=== PATIENT | male | born 1955 | race Caucasian/White ===

== ENCOUNTER → 2017-02-09 | Outpatient (CLI) | payer BC ==
[~2017-02-09] MED LIST: ASPI81TA28 PO; FEXO1TAB49 PO; MISC1CAP66 PO; MULT-506 PO
--- NOTE | 2017-02-09 09:51 | DIAGNOSTIC IMAGING REPORT ---
CT SCAN OF THE ABDOMEN AND PELVIS WITHOUT IV CONTRAST CLINICAL HISTORY: Right lower quadrant abdominal pain of one month's duration. Diarrhea. COMPARISON STUDY: No priors. TECHNIQUE: CT scan of the abdomen and pelvis is performed from the lung bases to the proximal femora. Images are reviewed in the axial, sagittal, and coronal planes. IV contrast was not administered for this examination as per the referring clinician. Note that the examination was performed in suboptimal fashion without oral and IV contrast. Automated dose control exposure was utilized. CT DOSE: 410.81 mGycm FINDINGS: Lung bases: The heart is normal in size and without pericardial effusion. No airspace consolidation or pleural effusion is identified at the lung bases. There is a 6 mm right middle lobe pulmonary nodule partially visualized on image #1. Paravertebral atelectasis is noted in the right lower lobe, likely related to osteophyte formation. Liver: The unenhanced liver is normal in size, contour, and attenuation. There is no intrahepatic biliary ductal dilatation. Gallbladder: Unremarkable. Spleen: Normal in size and attenuation. Pancreas: Unremarkable. Adrenal glands: Unremarkable. Kidneys: The unenhanced kidneys are normal in size and without hydronephrosis. There are no renal calculi identified. There is no evidence of contour deforming renal mass lesion. A circumaortic left renal vein is incidentally noted. Abdominal vasculature: The abdominal aorta is normal in course and caliber noting mild atherosclerotic calcification. Bowel: The small bowel and colon are normal in course and caliber. There are scattered colonic diverticula without CT evidence of acute diverticulitis. The appendix is well-visualized and normal. Peritoneum: There is no intraperitoneal free air or abdominal ascites. There is a small fat-containing umbilical hernia. Lymphadenopathy: None. Pelvic viscera: The bladder, prostate, and seminal vesicles are normal as imaged. Skeletal structures: No lytic or blastic lesions are seen. Soft tissues: A 2.3 cm sebaceous cyst is noted in the left lateral upper abdominal wall on image #132. IMPRESSION: 1. There are no acute infectious or inflammatory findings in the abdomen or pelvis. 2. There is a 6 mm right middle lobe pulmonary nodule which is only partially imaged. Follow-up with a chest CT is recommended for further assessment of the thorax. Electronically signed by: Tello Daly M.D. 02/09/2017 9:49 AM Dictated Date/Time: 02/09/2017 9:42 AM
== END | disposition home or self-care (01) ==
LOC: C.CTS 09:13
PROVIDERS: ATTEND Family Medicine
DX: R10.31 Right lower quadrant pain (principal); R19.7 Diarrhea, unspecified

== ENCOUNTER → 2017-02-20 | Outpatient (CLI) | payer BC ==
--- NOTE | 2017-02-20 07:53 | DIAGNOSTIC IMAGING REPORT ---
CT SCAN OF THE CHEST WITHOUT IV CONTRAST CLINICAL HISTORY: Pulmonary nodule. COMPARISON STUDY: Abdominal CT dated 02/09/2017. TECHNIQUE: CT scan of the thorax was performed from the thoracic inlet to the upper abdomen. Images are reviewed in the axial, sagittal, and coronal planes. IV contrast was not administered for this examination as per the referring clinician. CT DOSE: 278.11 mGycm FINDINGS: Thyroid: Imaged portions of the thyroid gland are normal in size and attenuation. Thoracic aorta: The thoracic aorta is normal in caliber and demonstrates standard 3-vessel arch anatomy. Heart: The heart is normal in size and without pericardial effusion. The pulmonary trunk is normal in caliber. Lungs and pleural spaces: There is biapical scarring. The trachea and central airways are clear. There is no airspace consolidation or pleural effusion. There are numerous (approximately 10) pulmonary nodules scattered throughout both lungs. The largest nodules measure 8 mm as seen in the right middle lobe on image #219 and 9 mm as seen in the left lower lobe on image #213. Several of these nodules appear slightly hyperdense suggesting faint calcifications. Mediastinum: There is diffuse mediastinal lymphadenopathy. The largest mediastinal nodes are in the prevascular region and measure up to 2.5 x 1.6 cm. Pattie: Not well assessed without IV contrast. Axillae: There is no axillary lymphadenopathy. Lower neck: No supraclavicular lymphadenopathy is seen. Upper abdomen: There is a tiny hiatal hernia. Partially visualized upper abdominal viscera is otherwise within normal limits. Skeletal structures: No lytic or blastic bony lesions are seen. IMPRESSION: 1. There is no airspace consolidation or pleural effusion. 2. There is bulky mediastinal lymphadenopathy. 3. There are numerous (approximately 10) indeterminant but low suspicion pulmonary nodules scattered throughout both lungs measuring up to 9 mm. This constellation of findings is nonspecific, and differential considerations include sarcoidosis, a lymphoproliferative disorder, or less likely reactive lymphadenopathy. Clinical correlation will be required and pulmonology follow-up is recommended. At a minimum, CT follow-up should be performed in 3-6 months time. Electronically signed by: Tello Daly M.D. 02/20/2017 7:51 AM Dictated Date/Time: 02/20/2017 7:42 AM
== END | disposition home or self-care (01) ==
LOC: C.CTS 07:17
PROVIDERS: ATTEND Family Medicine
DX: R91.1 Solitary pulmonary nodule (principal); R59.1 Generalized enlarged lymph nodes; R91.8 Other nonspecific abnormal finding of lung field

== ENCOUNTER → 2017-05-30 | Outpatient (CLI) | payer BC ==
--- NOTE | 2017-05-30 15:03 | DIAGNOSTIC IMAGING REPORT ---
(CHEST) THORAX WITH CLINICAL HISTORY: 62 years-old Male presenting with pulmonary nodules, mediastinal lymphadenopathy. TECHNIQUE: Multidetector CT chest was performed after the administration of intravenous contrast. IV contrast: Optiray 320. COMPARISON: 02/20/2017. CT DOSE: The estimated cumulative dose is 245.68 mGy.cm. 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 On soft tissue windows, normal thyroid and thoracic inlet. Numerous enlarged mediastinal lymph nodes involving every station. Few index nodes are measured below: -Prevascular lymph node measures 20 x 12 mm, previously 19 x 12 mm (series 2 image 27). -Additional prevascular lymph node measures 14 x 8 mm, previously 14 x 7 mm (series 2 image 22). Bilateral hilar adenopathy also noted. Mitral annular calcification. Normal heart size. No pericardial or pleural effusion. Upper abdomen unremarkable. On lung windows, paramediastinal reticulation in the azygos esophageal recess, unchanged. Again demonstrated are multiple bilateral pulmonary nodules. There is dense, a right upper lobe pulmonary nodule measures 4 mm, previously 4 mm (series 4 image 91). The largest pulmonary nodule is in the right middle lobe and measures 7 mm, previously 8 mm (series 4 image 212). Airways patent. On bone windows, degenerative changes of the thoracic spine. Orthopedic hardware noted in the right humeral head. IMPRESSION: 1. No significant change in prominent mediastinal and right hilar lymphadenopathy and bilateral pulmonary nodules. This is most suggestive of sarcoidosis, especially given stability since the prior exam in March 02, 2017. Nonetheless, continued follow-up is recommended to prove stability. Follow-up per Fleischner Society 2017 criteria to be considered of the pulmonary nodules. Please refer to below summary of Fleischner criteria recommendations for follow-up of incidental CT nodules (Wayne Wagner, Guidelines for management of small pulmonary nodules detected on CT scans: A statement from the Fleischner Society, Radiology 237: [phone].) SOLID NODULES Solitary nodule size: <6 mm * Low risk patients: no follow-up needed * high risk patients: optional CT at 12 months Solitary nodule size: 6-8 mm * Low risk patients: follow-up at 6-12 months, then consider further follow-up at 18-24 months * high risk patients: initial follow-up CT at 6-12 months and then at 18-24 months if no change Solitary nodule size: >8 mm * either low or high risk patients - consider follow-up CT at 3 months, and/or CT-PET, and/or biopsy Multiple nodules size: <6 mm * Low risk patients: no routine follow-up * high risk patients: optional CT at 12 months Multiple nodules size: 6-8 mm * Low risk patients: follow-up at 3-6 months, then consider further follow-up at 18-24 months * high risk patients: follow-up at 3-6 months, then at 18-24 months if no change Multiple nodules size: >8 mm * Low risk patients: follow-up at 3-6 months, then consider further follow-up at 18-24 months * high risk patients: follow-up at 3-6 months, then at 18-24 months if no change Note: newly detected indeterminate nodule in persons 35 years of age or older. * Low risk patients: minimal or absent history of smoking and/or other known risk factors * high risk patients: history of smoking or of other known risk factors (e.g. first degree relative with lung cancer, or exposure to asbestos, radon, uranium) * if a nodule up to 8 mm is partly solid or is ground glass further follow-up is required after 24 months to exclude possible slow growing adenocarcinoma (ANNE MARIE) SUBSOLID NODULES Solitary pure ground-glass nodule * nodule size <6 mm - no CT follow-up required * nodule size >=6 mm - follow-up CT at 6-12 months, then every 2 years until 5 years Solitary part-solid nodule * nodule size <6 mm - no CT follow-up required * nodule size >=6 mm - follow-up CT at 3-6 months. If unchanged, and solid component remains <6 mm, then annual follow-up for 5 years Multiple subsolid nodules * nodule size <6 mm - follow-up CT at 3-6 months, consider further follow-up at 2 and 4 years if stable * nodule size >=6 mm - follow-up CT at 3-6 months, subsequent management based on the most suspicious nodule(s) Electronically signed by: Sterling Morrell M.D. 05/30/2017 3:02 PM Dictated Date/Time: 05/30/2017 2:46 PM
== END | disposition home or self-care (01) ==
LOC: C.CTS 13:50
PROVIDERS: ATTEND Internal Medicine Critical Care Medicine
DX: R59.0 Localized enlarged lymph nodes (principal); R91.8 Other nonspecific abnormal finding of lung field

== ENCOUNTER → 2017-07-03 | Outpatient (CLI) | payer BC ==
[2017-07-03 16:57] LABS: BASO % 0.4 %; BASO ABS # 0.02 K/uL (0-0.2); COMPLETE YES; HEMATOCRIT 41.7 % (42-52); IG% 0.4 %; LYMPH % 18.7 %; LYMPH ABS # 0.88 K/uL (1.2-3.4); MEAN CELL VOLUME 91.9 fL (80-100); MEAN CORPUSCULAR HEMOGLOBIN 32.2 pg (25-34); MEAN PLATELET VOLUME 10.1 fL (7.4-10.4); MONO % 8.7 %; NEUT % 67.8 %; PLATELET COUNT 191 K/uL (130-400); RED BLOOD COUNT 4.54 M/uL (4.7-6.1)
[2017-07-03 17:04] LABS: PROTHROMBIN TIME (PATIENT) 10.5 SECONDS (9.0-12.0)
[2017-07-03 17:29] LABS: BLOOD UREA NITROGEN 17 mg/dl (7-18); CALCIUM 8.9 mg/dl (8.5-10.1); CARBON DIOXIDE 28 mmol/L (21-32); CHLORIDE 104 mmol/L (98-107); GLUCOSE 97 mg/dl (70-99); POTASSIUM 4.1 mmol/L (3.5-5.1); SODIUM 139 mmol/L (136-145)
== END | disposition home or self-care (01) ==
LOC: C.LAB 15:17
PROVIDERS: ATTEND Internal Medicine Critical Care Medicine
DX: Z01.812 Encounter for preprocedural laboratory examination (principal)

== ENCOUNTER → 2017-07-13 | Day surgery (SDC) | payer BC ==
[2017-07-03 12:50] VITALS: BMI 22.0
[~2017-07-13] VITALS: Ht 175.3 cm; Wt 70.0 kg
[~2017-07-13] MED LIST changes: +ATROPINE SULFATE 0.1 MG/ML 5ML SYR IV PRN; +DEXAMETHASONE SOD INJ 4 MG/ML VIAL ONE; +EpHEDrine SULFATE 50MG/5ML SYR ONE; +EpHEDrine SULFATE INJ 50 MG/ML AMP IV PRN; +FENTANYL CITRATE INJ 50 MCG/1 ML 2 ML VIAL IV PRN; +FENTANYL CITRATE INJ 50 MCG/1 ML 2 ML VIAL ONE; +FLUMAZENIL 0.1 MG/1 ML 10 ML VIAL IV PRN; +GLYCOPYRROLATE INJ 0.2 MG/ML VIAL ONE; +HYDROmorphone INJ 2 MG/ML SYR/VIAL IV PRN; +LABETALOL HCL IV 5 MG/ML 20ML IV PRN; +LACTATED RINGER'S 1000ML 1,000 ML IV SCH; +LIDOCAINE HCL 2% 2 ML VIAL (20MG/ML) ONE; +MEPERIDINE HCL 25 MG/ML CARP IV PRN; +MIDAZOLAM HCL 1 MG/ML 2ML VIAL ONE; +NALOXONE HCL 0.4 MG/1 ML VIAL/CARP IV PRN; +NEOSTIGMINE METHYLSULFATE 5 MG/5 ML SYR ONE; +ONDANSETRON INJ 2 MG/ML 2 ML VIAL IV PRN; +ONDANSETRON INJ 2 MG/ML 2 ML VIAL ONE; +PHENYLEPHRINE 100MCG/ML 5ML SYR IV PRN; +PROPOFOL IV EMULSION 10 MG/ML 20 ML VIAL IV ONE; +ROCURONIUM BROMIDE 10 MG/ML 5 ML VIAL IV ONE
[2017-07-13 05:37] VITALS: BP 145/93; PULSE 64; TEMP 36.9; O2SAT 98; Ht 175.3 cm; Wt 70.0 kg
--- NOTE | 2017-07-13 06:19 | History and Physical ---
History & Physical Date Jul 13, 2017. Chief Complaint 62-year-old gentleman here for EBUS bronchoscopy for lung nodules and mediastinal lymphadenopathy seen on noncontrast CT: History of Present Illness The patient is a 62 year old male with abnormal CT scan showing diffuse mediastinal lymphadenopathy and pulmonary nodules: 62-year-old gentleman here for EBUS bronchoscopy for lung nodules and mediastinal lymphadenopathy seen on noncontrast CT: The patient initially went to his primary care physician Dr. Lora Mazariegos for evaluation of right lower quadrant pain. As a child he did have an episode of appendicitis which did not require appendectomy. due the patient's previous medical history as well as clinical presentation Dr. Pérez performed CT of the abdomen performed on 02/09/2017. This did note 6 mm nodule in the right middle lobe. With this finding a full CT scan was performed on 02/20/2017 of the chest with multiple pulmonary nodules noted the largest being 9 mm in the left lower lobe. This CT of the chest was not performed with IV contrast. The patient denies: Fever, chills, night sweats, cough, pleurisy or unintentional weight loss. Primary lung cancer risk factors 1. Father of lung cancer 2. Unknown Radon exposure CT scan of the chest without IV contrast date of study 02/20/2017 Biapical scarring Approximately 10 pulmonary nodules scattered throughout both lungs Right middle lobe 8 millimeter nodule image 219 Left lower lobe 9 millimeter nodule image 213 Mediastinum: Diffuse mediastinal lymphadenopathy Largest mediastinal lymph nodes in the perivascular region 2.5 x 1.6 centimeters Small hiatal hernia noted CT scan of the abdomen dated 02/09/2017 (obtain secondary to right lower quadrant abdominal pain) Right middle lobe: 6 mm nodule Paravertebral atelectasis noted in the right lower lobe Active Problems 1. Elevated BP without diagnosis of hypertension 2. Pulmonary nodules 3. Sinusitis 4. History of atrial fibrillation 5. History of bacteremia 6. History of dental abscess Surgical History 1. Colonoscopy (Fiberoptic) 2. Knee Surgery Left 3. Knee Surgery Right 4. Shoulder Surgery Right Family History 1. Family history of lung cancer 2. Family history of malignant neoplasm of prostate Current Meds 1. Karla Allergy 180 MG Oral Tablet; TAKE 1 TABLET DAILY NEEDED 2. Aspirin 325 MG Oral Tablet; TAKE 1 TABLET DAILY 3. Claritin 10 MG Oral Tablet; TAKE 1 TABLET DAILY NEEDED 4. Multivitamin Adult Oral Tablet; TAKE 1 TABLET DAILY Allergies 1. No Known Drug Allergies Additional History Hepatic Disease: No Endocrine Disorder: No Kidney Disease: No Hypertension: No Heart Disease: History of atrial fibrillation Bleeding Tendencies: No Infectious Diseases: No Allergies Coded Allergies: NO KNOWN DRUG ALLERGIES (Verified Allergy, Unknown, NKDA, 07/13/17) POLLEN (Verified Allergy, Unknown, HAYFEVER, 07/13/17) Home Medications Scheduled Aspirin (Aspirin Ec), 81 MG PO DAILY Misc Natural Products (Joint Support), 1 CAP PO Q3D Multivitamin (Multivitamin), 1 TAB PO QAM Scheduled PRN Fexofenadine Hcl (Karla Allergy), 1 TAB PO DAILY PRN for PRN Physical Examination Skin: warm/dry, no rash Eyes: normal inspection, EOMI, sclerae normal ENT: normal ENT inspection, pharynx normal Head: normocephalic, atraumatic Neck: supple, no adenopathy, trachea midline Respiratory/Chest: lungs clear, normal breath sounds, no respiratory distress Cardiovascular: regular rate, rhythm, no edema, no murmur Abdomen / GI: normal bowel sounds, non tender Back: normal inspection Extremities: normal inspection, normal range of motion Neurologic/Psych: no motor/sensory deficits, alert, normal reflexes, oriented x 3 Diagnosis Mediastinal lymphadenopathy with pulmonary nodule ASA Classification: ASA Class II Plan of Treatment EBUS with associated flexible bronchoscopy: Transbronchial transtracheal fine- needle aspiration and bronchial alveolar lavage.
--- NOTE | 2017-07-13 06:45 | History & Physical Bridge Note ---
H&P Re-Evaluation Bridge Note: I have examined the patient, reviewed the History & Physical and in the interval since the performance of the History & Physical I have noted the following changes of clinical significance: No changes noted
--- NOTE | 2017-07-13 08:45 | Bronchoscopy Procedure Note ---
Bronchoscopy Procedure Note Procedure: Flexible-Bronchoscopy, EBUS, BAL (RML), GETA Consent: Obtained through the patient placed into the chart Preprocedural diagnosis: Mediastinal lymphadenopathy with right middle lobe nodule Postprocedural diagnosis: Sarcoidosis with right middle lobe nodule Analgesia: GETA Sedation: GETA Procedure: The Olympus video bronchoscope and EBUS scope were used for this procedure Initially the flexible bronchoscope was used for evaluation of the airways. The ET tube was notably cm above the level of the tj. Trachea: Visualized portion of the trachea was anatomically within normal limits Tj: Anatomically within normal limits Right bronchial tree: Right mainstem bronchus: Anatomically within normal limits Right upper lobe: Anatomically within normal limits Bronchus intermedius: Anatomically within normal limits Right middle lobe: Anatomically within normal limits Right lower lobe: Anatomically within normal limits Findings: No significant findings noted Left bronchial tree: Left mainstem bronchus: Anatomically within normal limits Left upper lobe: Anatomically within normal limits Lingula: Anatomically within normal limits Left lower lobe: Anatomically within normal limits Findings: No significant findings noted EBUS/EV: Tbbx Vimal Stations: 7: # of passes 4 4R: # of passes 3 4L: # of passes 3 BAL: Right middle lobe EBL: 2 cc Complications: None Follow-up: [facility]
--- NOTE | 2017-07-13 08:50 | Discharge Instructions ---
Discharge Instructions Date of Service Jul 13, 2017. Admission Reason for Admission: Pulmonary Nodules Discharge Discharge Diagnosis / Problem: Presumptive Sarcoidosis Discharge Goals Goal(s): Diagnostic testing Activity Recommendations Activity Limitations: resume your previous activity . Instructions / Follow-Up Instructions / Follow-Up Follow-up in the [facility] Current Hospital Diet Patient's current hospital diet: Discharge Diet Recommended Diet: Regular Diet Procedures Procedures Performed: Endobronchial Ultrasound Guided Transbronchial/ Transtracheal Needle Biopsy; Flexible Brochoscopy; Bronchial Lavage Pending Studies Studies pending at discharge: no Medical Emergencies . Who to Call and When: Medical Emergencies: If at any time you feel your situation is an emergency, please call 911 immediately. . Non-Emergent Contact Non-Emergency issues call your: [employer] . . "Provider Documentation" section prepared by Bernard Ann. . VTE Core Measure Inpt VTE Proph given/why not?: Treatment not indicated
--- NOTE | 2017-07-13 09:08 | Anesthesiology Progress Note ---
Anesthesia Post Op Note Date & Time Jul 13, 2017 at 09:08 Vital Signs Pain Intensity: 0 Vital Signs Past 12 Hours Date Time Temp Pulse Resp B/P (MAP) Pulse Ox O2 Delivery O2 Flow Rate FiO2 07/13/17 09:00 62 16 123/78 98 Nasal Cannula 2 07/13/17 08:50 67 16 120/76 96 Oxymask 10 07/13/17 08:40 74 16 125/76 96 Oxymask 10 07/13/17 08:36 36.0 74 16 134/79 100 Oxymask 10 07/13/17 05:37 36.9 64 18 145/93 (110) 98 Room Air Notes Mental Status: alert / awake / arousable, participated in evaluation Pt Amnestic to Procedure: Yes Nausea / Vomiting: adequately controlled Pain: adequately controlled Airway Patency, RR, SpO2: stable & adequate BP & HR: stable & adequate Hydration State: stable & adequate Anesthetic Complications: no major complications apparent
[2017-07-13 09:25] VITALS: BP 105/64; PULSE 74; TEMP 36.5; O2SAT 95
[2017-07-13 09:53] VITALS: BP 133/80; PULSE 73; O2SAT 98
[2017-07-13 10:34] VITALS: BP 126/86; PULSE 69; O2SAT 96
== END | disposition home or self-care (01) ==
LOC: C.ACU 05:16
PROVIDERS: ATTEND Internal Medicine Critical Care Medicine
DX: D86.0 Sarcoidosis of lung (principal); R59.1 Generalized enlarged lymph nodes; Z85.118 Personal history of other malignant neoplasm of bronchus and lung; Z79.82 Long term (current) use of aspirin

== ENCOUNTER 2017-10-29 15:38 | Observation (INO) | payer BC ==
[~2017-10-29] VITALS: Ht 175.3 cm; Wt 69.9 kg
[~2017-10-29 15:38] MED LIST changes: -ATROPINE SULFATE 0.1 MG/ML 5ML SYR IV PRN; -DEXAMETHASONE SOD INJ 4 MG/ML VIAL ONE; -EpHEDrine SULFATE 50MG/5ML SYR ONE; -EpHEDrine SULFATE INJ 50 MG/ML AMP IV PRN; -FENTANYL CITRATE INJ 50 MCG/1 ML 2 ML VIAL IV PRN; -FENTANYL CITRATE INJ 50 MCG/1 ML 2 ML VIAL ONE; -FLUMAZENIL 0.1 MG/1 ML 10 ML VIAL IV PRN; -GLYCOPYRROLATE INJ 0.2 MG/ML VIAL ONE; -HYDROmorphone INJ 2 MG/ML SYR/VIAL IV PRN; -LABETALOL HCL IV 5 MG/ML 20ML IV PRN; -LACTATED RINGER'S 1000ML 1,000 ML IV SCH; -LIDOCAINE HCL 2% 2 ML VIAL (20MG/ML) ONE; -MEPERIDINE HCL 25 MG/ML CARP IV PRN; -MIDAZOLAM HCL 1 MG/ML 2ML VIAL ONE; -NALOXONE HCL 0.4 MG/1 ML VIAL/CARP IV PRN; -NEOSTIGMINE METHYLSULFATE 5 MG/5 ML SYR ONE; -ONDANSETRON INJ 2 MG/ML 2 ML VIAL IV PRN; -ONDANSETRON INJ 2 MG/ML 2 ML VIAL ONE; -PHENYLEPHRINE 100MCG/ML 5ML SYR IV PRN; -PROPOFOL IV EMULSION 10 MG/ML 20 ML VIAL IV ONE; -ROCURONIUM BROMIDE 10 MG/ML 5 ML VIAL IV ONE
[2017-10-29] MEDS ORDERED: SODIUM CHLORIDE 0.9% 1000ML 1,000 ML IV SCH (16:01)
[2017-10-29 16:16] LABS: BASO % 0.6 %; BASO ABS # 0.03 K/uL (0-0.2); COMPLETE YES; HEMATOCRIT 42.4 % (42-52); IG% 0.4 %; LYMPH % 21.6 %; LYMPH ABS # 1.02 K/uL (1.2-3.4); MEAN CORPUSCULAR HEMOGLOBIN 32.5 pg (25-34); MEAN CORPUSCULAR HGB CONC 34.9 g/dl (32-36); MONO % 9.1 %; NEUT % 64.3 %; PLATELET COUNT 202 K/uL (130-400); RED BLOOD COUNT 4.56 M/uL (4.7-6.1); WHITE BLOOD COUNT 4.72 K/uL (4.8-10.8)
--- NOTE | 2017-10-29 16:20 | DIAGNOSTIC IMAGING REPORT ---
CHEST ONE VIEW PORTABLE CLINICAL HISTORY: 62 years-old Male presenting with Stroke. TECHNIQUE: Portable upright AP view of the chest was obtained. COMPARISON: CT chest from 05/30/2017. FINDINGS: Cardiomediastinal silhouette normal. Lungs and pleural spaces clear. Degenerative changes of the thoracic spine. Pin fixation in the right humeral head. Effacement of the left acromiohumeral interval suggesting rotator cuff injury. Upper abdomen normal. IMPRESSION: 1. No acute cardiopulmonary disease. Electronically signed by: Sterling Morrell M.D. 10/29/2017 4:19 PM Dictated Date/Time: 10/29/2017 4:17 PM
[2017-10-29 16:22] LABS: BLOOD UREA NITROGEN 23 mg/dl (7-18); BUN/CREATININE RATIO 22.2 (10-20); CARBON DIOXIDE 26 mmol/L (21-32); CHLORIDE 104 mmol/L (98-107); CREATININE 1.04 mg/dl (0.60-1.40); GLUCOSE 92 mg/dl (70-99); MAGNESIUM 1.9 mg/dl (1.8-2.4); POTASSIUM 3.9 mmol/L (3.5-5.1); SODIUM 136 mmol/L (136-145)
[2017-10-29 16:36] LABS: PROTHROMBIN TIME (PATIENT) 10.7 SECONDS (9.0-12.0)
--- NOTE | 2017-10-29 16:46 | DIAGNOSTIC IMAGING REPORT ---
HEAD WITHOUT CONTRAST (CT) CLINICAL HISTORY: 62 years-old Male presenting with Stroke, memory loss. TECHNIQUE: Multidetector CT imaging of the head was performed without the use of intravenous contrast. IV contrast: None. A dose lowering technique was used consistent with the principles of ALARA (as low as reasonably achievable). COMPARISON: None. CT DOSE (mGy.cm): The estimated cumulative dose is 623.48 mGy.cm. FINDINGS: Skilled Labor topogram: Unremarkable. Ventricles and sulci normal in size. Brain parenchyma normal in appearance with preserved villatoro-white differentiation. No mass effect or midline shift. No hemorrhage or acute territorial infarct. No extra-axial fluid collection. Paranasal sinuses and mastoid air cells clear. Calvarium intact. IMPRESSION: 1. No acute intracranial abnormality. Electronically signed by: Sterling Morrell M.D. 10/29/2017 4:44 PM Dictated Date/Time: 10/29/2017 4:42 PM
--- NOTE | 2017-10-29 16:56 | EMERGENCY ROOM VISIT NOTE ---
History Report prepared by Roque: Arely Dunn Under the Supervision of: Dr. Bernard Muller M.D. First contact with patient: 15:52 Chief Complaint: ALTERED MENTAL STATUS Stated Complaint: FEELS LIKE IN A FOG, CANNOT REMEMBER History of Present Illness The patient is a 62 year old male who presents to the Emergency Room with persistent altered mental status starting around 1345. The patient was driving home after visiting his family who lives 2 hours ago. His states that he suddenly started being unable to remember which exit he was supposed to take. He was unable to remember what happened earlier in the day and could not remember the password to get into his phone. He kept trying to do things that he had already done. He was able to continue driving. He did not become emotional. The patient reports feeling in a fog. He has a slight headache in the front. He cannot remember when the headache started. He is able to walk and his speech is normal. His states that he is still not at baseline. He still cannot remember things. He denies any numbness, weakness, or vision loss. He denies any trauma. He has a history of mitral valve prolapse. He has been healthy otherwise. He denies any history of heart disease, hypertension, or diabetes. Source of History: patient, spouse/significant other Onset: 1345 Position: other (global) Quality: other (altered mental status) Timing: other (persistent) Associated Symptoms: + headache, No weakness, No numbness Note: Pt has memory loss, feeling in a fog. Pt denies change in speech, vision loss. Review of Systems See HPI for pertinent positives & negatives. A total of 10 systems reviewed and were otherwise negative. Past Medical & Surgical Medical Problems: (1) Mitral valve prolapse Family History No pertinent family history stated. Social History Smoking Status: Never Smoker Marital Status: Occupation Status: employed Current/Historical Medications Scheduled Aspirin (Aspirin Ec), 81 MG PO DAILY Multivitamin (Multivitamin), 1 TAB PO QAM Scheduled PRN Fexofenadine Hcl (Karla Allergy), 1 TAB PO DAILY PRN for PRN Misc Natural Products (Joint Support), 1 CAP PO Q3D PRN for Allergies Coded Allergies: NO KNOWN DRUG ALLERGIES (Verified Allergy, Unknown, NKDA, 10/29/17) POLLEN (Verified Allergy, Unknown, HAYFEVER, 10/29/17) Physical Exam Vital Signs Date Time Temp Pulse Resp B/P (MAP) Pulse Ox O2 Delivery O2 Flow Rate FiO2 10/29/17 16:04 97 Room Air 10/29/17 15:41 36.5 92 20 112/58 99 Room Air Physical Exam Constitutional: Vital signs reviewed. Eyes: Pupils are equal round reactive to light. Conjunctiva are noninjected. ENT: Pharynx is clear without erythema or exudate. Mucous membranes are moist. Neck supple without meningeal signs. Respiratory: Clear to auscultation bilaterally. Breath sounds are equal bilaterally. Cardiovascular: Regular rate and rhythm. No rubs or gallops. GI: Soft, nondistended and nontender. Bowel sounds are present. Musculoskeletal: No peripheral edema. No lower extremity tenderness. Integumentary: No cyanosis. Neurological: The patient is awake and alert. Cranial nerves II-XII are intact. Motor is 5 out of 5 all extremities. Sensation is intact to light touch all extremities. Normal speech. No pronator drift. No limb ataxia. Normal visual britt by confrontation. Psychiatric: Normal affect. Medical Decision & Procedures ER Provider Diagnostic Interpretation: X-ray results as stated below per interpretation by me and the radiologist. Radiology results as stated below per my review and the radiologist's interpretation: CHEST ONE VIEW PORTABLE CLINICAL HISTORY: 62 years-old Male presenting with Stroke. TECHNIQUE: Portable upright AP view of the chest was obtained. COMPARISON: CT chest from 05/30/2017. FINDINGS: Cardiomediastinal silhouette normal. Lungs and pleural spaces clear. Degenerative changes of the thoracic spine. Pin fixation in the right humeral head. Effacement of the left acromiohumeral interval suggesting rotator cuff injury. Upper abdomen normal. IMPRESSION: 1. No acute cardiopulmonary disease. Electronically signed by: Sterling Morrell M.D. 10/29/2017 4:19 PM Dictated Date/Time: 10/29/2017 4:17 PM HEAD WITHOUT CONTRAST (CT) CLINICAL HISTORY: 62 years-old Male presenting with Stroke, memory loss. TECHNIQUE: Multidetector CT imaging of the head was performed without the use of intravenous contrast. IV contrast: None. A dose lowering technique was used consistent with the principles of ALARA (as low as reasonably achievable). COMPARISON: None. CT DOSE (mGy.cm): The estimated cumulative dose is 623.48 mGy.cm. 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 Ventricles and sulci normal in size. Brain parenchyma normal in appearance with preserved villatoro-white differentiation. No mass effect or midline shift. No hemorrhage or acute territorial infarct. No extra-axial fluid collection. Paranasal sinuses and mastoid air cells clear. Calvarium intact. IMPRESSION: 1. No acute intracranial abnormality. Electronically signed by: Sterling Morrell M.D. 10/29/2017 4:44 PM Dictated Date/Time: 10/29/2017 4:42 PM Laboratory Results 10/29/17 15:53 Red Blood Count 4.56, Mean Corpuscular Volume 93.0, Mean Corpuscular Hemoglobin 32.5, Mean Corpuscular Hemoglobin Concent 34.9, Mean Platelet Volume 10.0, Neutrophils (%) (Auto) 64.3, Lymphocytes (%) (Auto) 21.6, Monocytes (%) (Auto) 9.1, Eosinophils (%) (Auto) 4.0, Basophils (%) (Auto) 0.6, Neutrophils # (Auto) 3.03, Lymphocytes # (Auto) 1.02, Monocytes # (Auto) 0.43, Eosinophils # (Auto) 0.19, Basophils # (Auto) 0.03 10/29/17 15:53 Test 10/29/17 15:53 White Blood Count 4.72 K/uL (4.8-10.8) Red Blood Count 4.56 M/uL (4.7-6.1) Hemoglobin 14.8 g/dL (14.0-18.0) Hematocrit 42.4 % (42-52) Mean Corpuscular Volume 93.0 fL (80-100) Mean Corpuscular Hemoglobin 32.5 pg (25-34) Mean Corpuscular Hemoglobin Concent 34.9 g/dl (32-36) Platelet Count 202 K/uL (130-400) Mean Platelet Volume 10.0 fL (7.4-10.4) Neutrophils (%) (Auto) 64.3 % Lymphocytes (%) (Auto) 21.6 % Monocytes (%) (Auto) 9.1 % Eosinophils (%) (Auto) 4.0 % Basophils (%) (Auto) 0.6 % Neutrophils # (Auto) 3.03 K/uL (1.4-6.5) Lymphocytes # (Auto) 1.02 K/uL (1.2-3.4) Monocytes # (Auto) 0.43 K/uL (0.11-0.59) Eosinophils # (Auto) 0.19 K/uL (0-0.5) Basophils # (Auto) 0.03 K/uL (0-0.2) RDW Standard Deviation 44.6 fL (36.4-46.3) RDW Coefficient of Variation 13.0 % (11.5-14.5) Immature Granulocyte % (Auto) 0.4 % Immature Granulocyte # (Auto) 0.02 K/uL (0.00-0.02) Prothrombin Time 10.7 SECONDS (9.0-12.0) Prothromb Time International Ratio 1.0 (0.9-1.1) Activated Partial Thromboplast Time 26.4 SECONDS (21.0-31.0) Partial Thromboplastin Ratio 1.0 Anion Gap 6.0 mmol/L (3-11) Est Creatinine Clear Calc Drug Dose 75.6 ml/min Estimated GFR () 90.0 Estimated GFR (Non- 77.7 BUN/Creatinine Ratio 22.2 (10-20) Calcium Level 9.0 mg/dl (8.5-10.1) Magnesium Level 1.9 mg/dl (1.8-2.4) Troponin I < 0.015 ng/ml (0-0.045) Laboratory results as reviewed by me. ECG Indication: altered mental status Rate (beats per minute): 61 Rhythm: normal sinus Findings: RBBB, no acute ischemic change ED Course 1553: The patient was evaluated in room A11B. A complete history and physical exam was performed. 1628: I reevaluated the patient. He was able to recognize me, but did not remember my name. I gave him 3 objects to remember. 1648: I reevaluated the patient. He was still unable to recall my name. He did not remember the 3 objects that were given. I discussed the results and treatment plan with him and his . They verbalized agreement of the plan. He will be evaluated for further management. 1650: I spoke with Dr. Wagner, [facility] hospitalist. We discussed the patient and his results. The patient will be further evaluated by him. Medical Decision This is a 62-year-old male who presents with memory loss. Differential diagnosis includes transient global ischemia, intracranial mass, intracranial hemorrhage, CVA, epileptic amnesia, metabolic derangement. I did perform a limited focused review of portions of the patient's old chart on the electronic medical record. The patient has had no recent pertinent visits to this hospital. I did evaluate the patient as noted above. I did obtain history from the patient as well as his . The patient is presenting with sudden loss of memory while driving. He is currently neurologically intact and has a stroke scale of 0. IV access was established. The patient was placed on a continuous applications tester. I did order and personally review the patient's 12-lead EKG and chest x-ray as described above. I did order and review the patient's blood work as noted in the electronic medical record. I did order a CT of the head. I did review the images myself as well as the radiology report as described above. There is no evidence of acute intracranial abnormality. I did reassess the patient several times. He continues to be unable to make the memories. As the patient is persistently symptomatic I did feel he should be hospitalized for further evaluation and MRI of the brain. I did discuss the case with the hospitalist and mental health case manager. I did discuss the test results with the patient and his . Medication Reconcilliation Current Medication List: was personally reviewed by me Blood Pressure Screening Patient's blood pressure: Normal blood pressure Blood pressure disposition: Did not require urgent referral Consults Time Called: 1649 Consulting Physician: Dr. Wagner, [facility] hospitalist Returned Call: 1650 I spoke with him. We discussed the patient and his results. The patient will be further evaluated by him. Impression Primary Impression: Global amnesia Scribe Attestation The scribe's documentation has been prepared under my direct and personally reviewed by me in its entirety. I confirm that the note above accurately reflects all work, treatment, procedures, and medical decision making performed by me. Departure Information Dispostion Being Evaluated By Hospitalist Referrals Lora Mazariegos M.D. (PCP) Patient Instructions My [facility]
[2017-10-29] MEDS ORDERED: PHARMACIST DISCHARGE MED REC CONSULT PRN (17:30)
[2017-10-29] MEDS ORDERED: ACETAMINOPHEN 325 MG TAB PO PRN (17:30)
[2017-10-29] MEDS ORDERED: ONDANSETRON INJ 2 MG/ML 2 ML VIAL IV PRN (17:30)
--- NOTE | 2017-10-29 17:49 | History and Physical ---
History & Physical Date & Time of Service: Oct 29, 2017 at 17:35 Chief Complaint: Feels Like In A Fog, Cannot Remember Primary Care Physician: Lora Mazariegos M.D. History of Present Illness Source: patient, spouse, hospital records 62 yo male with history of mitral valve prolapse and osteoarthritis, presents today with transient memory loss that happened this afternoon when he was driving home from [employer] after visiting with family. The patient was at a [employer] party, he was drinking last night. His said that he was okay the entire way home but he could not remember what exit to get off [address] She felt that this was odd since they travel that road a lot. After being redirected by his , he was able to drive home. However, once home he could not remember the password to log onto his computer. He received a text from their mailman thanking him for the gift of a [employer] ticket and he wanted to tell him that he won $50. The patient could not recall giving him a [employer] card and a gift even though they just did it last week. He started to pace around the house and told his that he felt like he was "in a fog" and then he had a headache. His became concerned that maybe this was something serious so she brought him to the hospital. In the ED his vitals were stable, CT head normal and labs unremarkable. On exam his speech was clear, no focal neurologic deficits but he still had difficulty remembering events from this morning and last night. He cannot recall details of the [employer] party and cannot recall going out for breakfast with his family. His long-term memory is completely intact. He can tell me his past surgical histories, he can tell me all the names of his 11 siblings, he can tell me his work experience and the medical history of his parents. He is oriented to person, place and time. Past Medical/Surgical History Right shoulder arthroscopy Right knee arthroscopy Left knee arthroplasty Mitral valve prolapse Family History Father from lung cancer, smoker Mother in old age from natural causes 11 siblings, one brother from an accident at work Social History Smoking Status: Never Smoker Smokeless Tobacco Use: No Alcohol Use: socially Drug Use: cocaine Marital Status: Occupational Status: employed Allergies Coded Allergies: NO KNOWN DRUG ALLERGIES (Verified Allergy, Unknown, NKDA, 10/29/17) POLLEN (Verified Allergy, Unknown, HAYFEVER, 10/29/17) Home Medications Scheduled Aspirin (Aspirin Ec), 81 MG PO DAILY Multivitamin (Multivitamin), 1 TAB PO QAM Scheduled PRN Fexofenadine Hcl (Karla Allergy), 1 TAB PO DAILY PRN for PRN Misc Natural Products (Joint Support), 1 CAP PO Q3D PRN for Review of Systems Constitutional: No fever, No chills, No sweats, No weight loss, No weakness, No fatigue, No problem reported Eyes: No worsening of vision, No eye pain, No redness, No discharge, No diplopia, No problem reported ENT: No hearing loss, No unusual epistaxis, No nasal symptoms, No sore throat, No tinnitus, No dental problems, No trouble swallowing, No problem reported Respiratory: No cough, No sputum, No wheezing, No shortness of breath, No dyspnea on exertion, No dyspnea at rest, No hemoptysis, No problem reported Cardiovascular: No chest pain, No orthopnea, No PND, No edema, No claudication , No palpitations, No problem reported Abdomen: No pain, No nausea, No vomiting, No diarrhea, No constipation, No GI bleeding, No problem reported Musculoskeletal: No joint pain, No muscle pain, No swelling, No calf pain, No problem reported Genitourinary - Male: No hematuria, No dysuria, No urinary frequency, No urinary urgency Neurologic: + memory loss (short term), No paralysis, No weakness, No numbness/ tingling, No vertigo, No balance problems, No problem reported Psychiatric: No depression symptoms, No anhedonism, No anxiety, No insomnia, No substance abuse, No problem reported Endocrine: No fatigue, No excessive thirst, No excessive urination, No problem reported Hematologic / Lymphatic: No abnormal bleeding/bruising, No clotting problems, No swollen lymph nodes, No night sweats, No problem reported Integumentary: No rash, No itch, No new/changing skin lesions, No color change , No bleeding, No problem reported Allergic / Immunologic: + seasonal allergies, No environmental allergies, No pet sensitivities, No food allergies, No hives, No frequent infections, No poor healing, No prolonged convalescence, No problem reported Physical Exam Vital Signs Date Time Temp Pulse Resp B/P (MAP) Pulse Ox O2 Delivery O2 Flow Rate FiO2 10/29/17 16:59 160/98 10/29/17 16:08 82 21 10/29/17 16:04 97 Room Air 10/29/17 15:41 36.5 92 20 112/58 99 Room Air General Appearance: WD/WN, no apparent distress Head: normocephalic, atraumatic Eyes: normal inspection, EOMI, sclerae normal ENT: normal ENT inspection, hearing grossly normal, pharynx normal Neck: supple, no adenopathy, no JVD, trachea midline Respiratory/Chest: chest non-tender, lungs clear, normal breath sounds, no respiratory distress, no accessory muscle use Cardiovascular: regular rate, rhythm, no edema, no gallop, no JVD, no murmur, normal peripheral pulses Abdomen/GI: normal bowel sounds, non tender, soft, no organomegaly Back: normal inspection, no CVA tenderness, no muscle spasm, normal range of motion Extremities/Musculoskelatal: normal inspection, no calf tenderness, normal capillary refill, no pedal edema, normal range of motion, pelvis stable Neurologic/Psych: windows application developer II-XII nml as tested, no motor/sensory deficits, alert, normal mood/affect, normal reflexes, oriented x 3 Skin: normal color, warm/dry, no rash Lymphatic: no adenopathy Diagnostics Laboratory Results Results Past 24 Hours Test 10/29/17 15:53 10/29/17 17:30 Range/Units White Blood Count 4.72 4.8-10.8 K/uL Red Blood Count 4.56 4.7-6.1 M/uL Hemoglobin 14.8 14.0-18.0 g/dL Hematocrit 42.4 42-52 % Mean Corpuscular Volume 93.0 80-100 fL Mean Corpuscular Hemoglobin 32.5 25-34 pg Mean Corpuscular Hemoglobin Concent 34.9 32-36 g/dl Platelet Count 202 130-400 K/uL Mean Platelet Volume 10.0 7.4-10.4 fL Neutrophils (%) (Auto) 64.3 % Lymphocytes (%) (Auto) 21.6 % Monocytes (%) (Auto) 9.1 % Eosinophils (%) (Auto) 4.0 % Basophils (%) (Auto) 0.6 % Neutrophils # (Auto) 3.03 1.4-6.5 K/uL Lymphocytes # (Auto) 1.02 1.2-3.4 K/uL Monocytes # (Auto) 0.43 0.11-0.59 K/uL Eosinophils # (Auto) 0.19 0-0.5 K/uL Basophils # (Auto) 0.03 0-0.2 K/uL RDW Standard Deviation 44.6 36.4-46.3 fL RDW Coefficient of Variation 13.0 11.5-14.5 % Immature Granulocyte % (Auto) 0.4 % Immature Granulocyte # (Auto) 0.02 0.00-0.02 K/uL Prothrombin Time 10.7 9.0-12.0 SECONDS Prothromb Time International Ratio 1.0 0.9-1.1 Activated Partial Thromboplast Time 26.4 21.0-31.0 SECONDS Partial Thromboplastin Ratio 1.0 Sodium Level 136 136-145 mmol/L Potassium Level 3.9 3.5-5.1 mmol/L Chloride Level 104 98-107 mmol/L Carbon Dioxide Level 26 21-32 mmol/L Anion Gap 6.0 3-11 mmol/L Blood Urea Nitrogen 23 7-18 mg/dl Creatinine 1.04 0.60-1.40 mg/dl Est Creatinine Clear Calc Drug Dose 75.6 ml/min Estimated GFR () 90.0 Estimated GFR (Non- 77.7 BUN/Creatinine Ratio 22.2 10-20 Random Glucose 92 70-99 mg/dl Calcium Level 9.0 8.5-10.1 mg/dl Magnesium Level 1.9 1.8-2.4 mg/dl Troponin I < 0.015 0-0.045 ng/ml Diagnostic Radiology CT head normal CXR normal Impression Assessment and Plan 62 yo male with acute onset of memory loss, short term amnesia, still with some residual memory issues but intermediate frame tender memory intact - Short term memory loss: transient global amnesia vs small stroke observe on tele, check MRI brain to look for ischemic changes consult neurology to evaluate tomorrow continue aspirin check lipid panel and HbA1c hold on statin as this is not clearly a stroke also, hold on echo and carotid imaging until MRI results back DVT prophylaxis: early ambulation Level of Care Telemetry Resuscitation Status FULL RESUSCITATION VTE Prophylaxis VTE Risk Assessment Done? Y/N: Yes Risk Level: Low Given or contraindicated: Treatment not indicated Additional Copies To Lora Mazariegos M.D.
[2017-10-29] MEDS ORDERED: IV FLUIDS COMPLETED PRN (18:15)
[2017-10-29 19:40] VITALS: BP 179/98; PULSE 58; TEMP 37; O2SAT 99
[2017-10-29 20:00] VITALS: BP 179/98; PULSE 58; TEMP 37; O2SAT 99; Ht 175.3 cm; Wt 69.9 kg
--- NOTE | 2017-10-29 20:39 | DIAGNOSTIC IMAGING REPORT ---
BRAIN COMBO CLINICAL HISTORY: 62 years-old Male presenting with Stroke. TECHNIQUE: Multisequence, multiplanar MR imaging of the brain was performed before and after the administration of intravenous contrast. IV contrast: 7 mL of Gadavist. COMPARISON: CT head performed earlier the same day. FINDINGS: Ventricles and sulci normal in size. Brain parenchyma normal in appearance with preserved villatoro-white differentiation. No mass effect or midline shift. No restricted diffusion to suggest acute ischemia. No hemorrhage. No extra-axial fluid collection. T2 skull base flow voids preserved. No abnormal parenchymal enhancement. Bone marrow signal intensity within the calvarium within normal limits. IMPRESSION: 1. No acute intracranial pathology. No abnormal enhancement. Electronically signed by: Sterling Morrell M.D. 10/29/2017 8:38 PM Dictated Date/Time: 10/29/2017 8:33 PM
[2017-10-29 20:56] VITALS: BP 166/93; PULSE 72
[2017-10-29 23:23] VITALS: BP 124/70; PULSE 77; TEMP 37.1; O2SAT 98
[2017-10-30] MEDS ORDERED: INFLUENZA VIRUS QUAD VACCINE 0.5 ML SYR IM. ONE (00:30)
[2017-10-30] MEDS ORDERED: INFLUENZA ADMINISTRATION CHARGE ONE (00:30)
[2017-10-30 05:05] VITALS: BP 123/80; PULSE 59; TEMP 36.6; O2SAT 99
[2017-10-30 06:01] LABS: BASO % 0.3 %; BASO ABS # 0.01 K/uL (0-0.2); COMPLETE YES; EOS % 7.1 %; HEMATOCRIT 40.1 % (42-52); IG% 0.3 %; LYMPH % 21.8 %; MEAN CELL VOLUME 93.7 fL (80-100); MEAN CORPUSCULAR HEMOGLOBIN 32.2 pg (25-34); MEAN CORPUSCULAR HGB CONC 34.4 g/dl (32-36); MONO % 11.2 %; NEUT % 59.3 %; PLATELET COUNT 177 K/uL (130-400); RED BLOOD COUNT 4.28 M/uL (4.7-6.1); WHITE BLOOD COUNT 3.67 K/uL (4.8-10.8)
[2017-10-30 06:26] LABS: BUN/CREATININE RATIO 21.5 (10-20); CALCIUM 8.8 mg/dl (8.5-10.1); CREATININE 1.02 mg/dl (0.60-1.40)
[2017-10-30 06:29] LABS: CHOLESTEROL/HDL RATIO 3.5
[2017-10-30 06:59] LABS: ESTIMATED AVERAGE GLUCOSE 74 mg/dl; HA1C FLAG Normal (Normal)
[2017-10-30 07:23] VITALS: BP 133/81; PULSE 54; TEMP 36.9; O2SAT 100
--- NOTE | 2017-10-30 08:03 | Neurology Consultation ---
Neurology Consultation Date of Consultation: Oct 30, 2017. Attending Physician: Leonid Wagner D.O. Primary Care Physician: Lora Mazariegos M.D. Reason for Consultation: Amnesia History of Present Illness Source: patient, hospital records The patient is a 62-year-old male who presented to the hospital yesterday for further evaluation of an episode of amnesia that began acutely yesterday afternoon after returning home from a car trip. The patient was with his at the time of the episode. He reportedly cannot remember various things he had just done. He also cannot remember the password for his cellphone. He did report experiencing some associated headache and dizziness but no other neurological symptoms such as change in vision, speech, vertigo, weakness, or sensory loss. He did not seem overly distressed during the observed episode. He did not exhibit any obvious seizure activity. The patient has never had a similar episode previously. He does not have a history of migraine, stroke, or epilepsy. He is currently asymptomatic. I reviewed the images as well as the radiologist's interpretation of the recently completed brain MRI. The study was done with and without gadolinium enhancement. No evidence of acute or subacute infarct. No evidence of hemorrhage. No evidence of demyelination or other parenchymal disease. No hydrocephalus. No significant atrophy. Past Medical/Surgical History Medical Problems: (1) Global amnesia Status: Acute Family History Noncontributory Social History Smokeless Tobacco Use: No Alcohol Use: socially Drug Use: cocaine Marital Status: Occupation Status: employed Allergies Coded Allergies: NO KNOWN DRUG ALLERGIES (Verified Allergy, Unknown, NKDA, 10/29/17) POLLEN (Verified Allergy, Unknown, HAYFEVER, 10/29/17) Current Inpatient Medications Current Inpatient Medications Medications (Trade) Dose Ordered Sig/Damian Route Start Time Stop Time Status Last Admin Dose Admin Miscellaneous Information (Pharmacist Discharge Med Rec Consult) 1 ea UD PRN N/A 10/29/17 17:30 11/28/17 17:29 Acetaminophen (Tylenol Tab) 650 mg Q4H PRN PO 10/29/17 17:30 11/28/17 17:29 Ondansetron HCl (Zofran Inj) 4 mg Q6H PRN IV 10/29/17 17:30 11/28/17 17:29 Aspirin (Ecotrin Tab) 81 mg DAILY PO 10/30/17 09:00 11/29/17 08:59 Miscellaneous (Iv Fluids Completed) 1 ea PRN PRN N/A 10/29/17 18:15 10/29/18 18:14 Review of Systems Constitutional: No fever or chills Neurological: As per history of present illness Psychiatric: No depression or anxiety Physical Exam Vital Signs (Past 24 Hrs): Date Time Temp Pulse Resp B/P (MAP) Pulse Ox O2 Delivery O2 Flow Rate FiO2 10/30/17 07:23 36.9 54 18 133/81 (98) 100 Room Air 10/30/17 05:05 36.6 59 20 123/80 (94) 99 Room Air 10/30/17 04:00 Room Air 10/30/17 00:00 Room Air 10/29/17 23:23 37.1 77 18 124/70 (88) 98 Room Air 10/29/17 20:56 72 166/93 (117) 10/29/17 20:00 99 Room Air 10/29/17 20:00 37.0 58 16 179/98 99 Room Air 10/29/17 19:40 37.0 58 16 179/98 (125) 99 Room Air 10/29/17 18:34 65 18 99 10/29/17 18:04 69 19 99 10/29/17 18:01 181/99 10/29/17 17:34 82 19 95 10/29/17 17:04 61 14 98 10/29/17 16:59 160/98 10/29/17 16:08 82 21 10/29/17 16:04 97 Room Air 10/29/17 15:41 36.5 92 20 112/58 99 Room Air The patient is a well-developed, well-nourished, elderly male. He is sitting up comfortably in bed and in no acute distress. He is alert and oriented to person place and time. Recent and remote memory intact. Attention and concentration normal patient exhibits a normal spontaneous speech pattern. He is able to name objects and repeat phrases. He exhibits an age-appropriate fund of knowledge. Visual britt full to confrontation. Visual acuity normal. Pupils equal round reactive to light and accommodation. Eye movements normal. Facial sensation and expression are normal. No facial droop. Hearing intact bilaterally. Palate elevates to midline. Shoulder shrug strength intact bilaterally. Tongue protrudes to midline. Sensation intact in all 4 limbs. Deep tendon reflexes are intact and symmetrical for the arms and legs. There is no dysdiadochokinesia or dysmetria with finger to nose or heel to duncan. Carotid pulses normal bilaterally , no bruits to auscultation. Muscle strength and tone normal for the arms and legs bilaterally. No abnormal movements. No atrophy. Laboratory Results Past 24 Hours: 10/30/17 05:21 Red Blood Count 4.28, Mean Corpuscular Volume 93.7, Mean Corpuscular Hemoglobin 32.2, Mean Corpuscular Hemoglobin Concent 34.4, Mean Platelet Volume 10.0, Neutrophils (%) (Auto) 59.3, Lymphocytes (%) (Auto) 21.8, Monocytes (%) (Auto) 11.2, Eosinophils (%) (Auto) 7.1, Basophils (%) (Auto) 0.3, Neutrophils # (Auto ) 2.18, Lymphocytes # (Auto) 0.80, Monocytes # (Auto) 0.41, Eosinophils # (Auto ) 0.26, Basophils # (Auto) 0.01 10/30/17 05:21 Test 10/29/17 15:53 10/29/17 16:09 10/30/17 05:21 Prothrombin Time 10.7 SECONDS (9.0-12.0) Prothromb Time International Ratio 1.0 (0.9-1.1) Activated Partial Thromboplast Time 26.4 SECONDS (21.0-31.0) Partial Thromboplastin Ratio 1.0 Estimated Average Glucose 74 mg/dl Hemoglobin A1c 4.2 % (4.5-5.6) Magnesium Level 1.9 mg/dl (1.8-2.4) Troponin I < 0.015 ng/ml (0-0.045) Bedside Glucose 91 mg/dl (70-99) White Blood Count 3.67 K/uL (4.8-10.8) Red Blood Count 4.28 M/uL (4.7-6.1) Hemoglobin 13.8 g/dL (14.0-18.0) Hematocrit 40.1 % (42-52) Mean Corpuscular Volume 93.7 fL (80-100) Mean Corpuscular Hemoglobin 32.2 pg (25-34) Mean Corpuscular Hemoglobin Concent 34.4 g/dl (32-36) Platelet Count 177 K/uL (130-400) Mean Platelet Volume 10.0 fL (7.4-10.4) Neutrophils (%) (Auto) 59.3 % Lymphocytes (%) (Auto) 21.8 % Monocytes (%) (Auto) 11.2 % Eosinophils (%) (Auto) 7.1 % Basophils (%) (Auto) 0.3 % Neutrophils # (Auto) 2.18 K/uL (1.4-6.5) Lymphocytes # (Auto) 0.80 K/uL (1.2-3.4) Monocytes # (Auto) 0.41 K/uL (0.11-0.59) Eosinophils # (Auto) 0.26 K/uL (0-0.5) Basophils # (Auto) 0.01 K/uL (0-0.2) RDW Standard Deviation 45.8 fL (36.4-46.3) RDW Coefficient of Variation 13.4 % (11.5-14.5) Immature Granulocyte % (Auto) 0.3 % Immature Granulocyte # (Auto) 0.01 K/uL (0.00-0.02) Anion Gap 3.0 mmol/L (3-11) Est Creatinine Clear Calc Drug Dose 76.1 ml/min Estimated GFR () 92.2 Estimated GFR (Non- 79.5 BUN/Creatinine Ratio 21.5 (10-20) Calcium Level 8.8 mg/dl (8.5-10.1) Triglycerides Level 121 mg/dl (0-150) Cholesterol Level 192 mg/dl (0-200) HDL Cholesterol 55 mg/dl LDL Cholesterol, Calculated 113 mg/dl VLDL Cholesterol, Calculated 24 mg/dl Cholesterol/HDL Ratio 3.5 Impression Transient global amnesia. Resolved. Patient neurologically intact. Brain MRI normal. No history of migraines, epilepsy, or stroke. No clinical evidence suggestive of encephalitis. Plan No further workup necessary. I explained to the patient the benign nature of transient global amnesia. Evaluations are typically negative or unremarkable. There is no specific treatment for this phenomenon. Some individuals may experience a relapse potentially related to stress or travel. No further recommendations at this time. Thank you for the consult.
--- NOTE | 2017-10-30 08:21 | Medical Student: [facility] ---
Consultation Date of Consultation: Oct 30, 2017. History of Present Illness Patient developed transient memory loss yesterday afternoon on his way driving home. He couldn't remember what exit to take to get off the highway. He had some other memory issues yesterday, such as not remembering the password to his phone, and repeating himself. He had a headache at the time of the memory loss. He denies any other associated symptoms with the event. He stated that by the time he arrived to the ED, he can remember what happened yesterday. There is a period of time yesterday for several hours that he does not recall what happened. This has never happened before. The patient has no history of stroke, migraines, or seizures. Past Medical/Surgical History Medical History: Osteoarthritis Mitral valve prolapse Surgical History: Right shoulder arthroscopy Left and right knee arthroscopy Family History Father - lung cancer Social History Smoking Status: Never Smoker History of Alcohol Use: Yes (beer/wine 2 glasses/day) Marital Status: Occupation Status: employed Review of Systems Constitutional: No fever, No chills Eyes: No worsening of vision ENT: No hearing loss Abdomen: No pain, No vomiting Neurologic: No paralysis, No weakness Allergies Coded Allergies: NO KNOWN DRUG ALLERGIES (Verified Allergy, Unknown, NKDA, 10/29/17) POLLEN (Verified Allergy, Unknown, HAYFEVER, 10/29/17) Medications Current Inpatient Medications Medications (Trade) Dose Ordered Sig/Damian Route Start Time Stop Time Status Last Admin Dose Admin Miscellaneous Information (Pharmacist Discharge Med Rec Consult) 1 ea UD PRN N/A 10/29/17 17:30 11/28/17 17:29 Acetaminophen (Tylenol Tab) 650 mg Q4H PRN PO 10/29/17 17:30 11/28/17 17:29 Ondansetron HCl (Zofran Inj) 4 mg Q6H PRN IV 10/29/17 17:30 11/28/17 17:29 Aspirin (Ecotrin Tab) 81 mg DAILY PO 10/30/17 09:00 11/29/17 08:59 Miscellaneous (Iv Fluids Completed) 1 ea PRN PRN N/A 10/29/17 18:15 10/29/18 18:14 Physical Exam Date Time Temp Pulse Resp B/P (MAP) Pulse Ox O2 Delivery O2 Flow Rate FiO2 10/30/17 05:05 36.6 59 20 123/80 (94) 99 Room Air 10/30/17 04:00 Room Air 10/30/17 00:00 Room Air 10/29/17 23:23 37.1 77 18 124/70 (88) 98 Room Air 10/29/17 20:56 72 166/93 (117) 10/29/17 20:00 99 Room Air 10/29/17 20:00 37.0 58 16 179/98 99 Room Air 10/29/17 19:40 37.0 58 16 179/98 (125) 99 Room Air 10/29/17 18:34 65 18 99 10/29/17 18:04 69 19 99 10/29/17 18:01 181/99 10/29/17 17:34 82 19 95 10/29/17 17:04 61 14 98 10/29/17 16:59 160/98 10/29/17 16:08 82 21 10/29/17 16:04 97 Room Air 10/29/17 15:41 36.5 92 20 112/58 99 Room Air General Appearance: WD/WN, no apparent distress Eyes: bilateral eyes normal inspection, bilateral eyes PERRL, bilateral eyes EOMI Neck: no JVD Respiratory: no respiratory distress, no accessory muscle use Neurologic/Psychiatric: 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 Extraocular movements were intact and no nystagmus was noted. Mental status: Alert, attentive. Oriented to name and location and time. Memory - 3 item recall intact after 3 minutes. Language -Normal speech. Normal fluency, no paraphasic errors or neologisms or grammar errors present. Neglect, constructions, praxis not tested. Logic and abstraction not tested. Crania nerves: 1 - olfaction not tested 2 - visual britt intact 3,4,6 - normal eye tracking to all directions 5 - not tested 7 - no problems noted 8 - hearing grossly intact 9,10 - not tested 11 - not tested 12 - no tongue deviation on protrusion Reflexes - DTRs are 2+ legs bilaterally Motor strength - not tested Sensation - not tested Gait - not assessed. Coordination - intact finger to nose testing Laboratory Results Last 24 Hours Test 12/17/17 15:53 10/29/17 16:09 10/30/17 05:21 White Blood Count 4.72 K/uL 3.67 K/uL Red Blood Count 4.56 M/uL 4.28 M/uL Hemoglobin 14.8 g/dL 13.8 g/dL Hematocrit 42.4 % 40.1 % Mean Corpuscular Volume 93.0 fL 93.7 fL Mean Corpuscular Hemoglobin 32.5 pg 32.2 pg Mean Corpuscular Hemoglobin Concent 34.9 g/dl 34.4 g/dl Platelet Count 202 K/uL 177 K/uL Mean Platelet Volume 10.0 fL 10.0 fL Neutrophils (%) (Auto) 64.3 % 59.3 % Lymphocytes (%) (Auto) 21.6 % 21.8 % Monocytes (%) (Auto) 9.1 % 11.2 % Eosinophils (%) (Auto) 4.0 % 7.1 % Basophils (%) (Auto) 0.6 % 0.3 % Neutrophils # (Auto) 3.03 K/uL 2.18 K/uL Lymphocytes # (Auto) 1.02 K/uL 0.80 K/uL Monocytes # (Auto) 0.43 K/uL 0.41 K/uL Eosinophils # (Auto) 0.19 K/uL 0.26 K/uL Basophils # (Auto) 0.03 K/uL 0.01 K/uL RDW Standard Deviation 44.6 fL 45.8 fL RDW Coefficient of Variation 13.0 % 13.4 % Immature Granulocyte % (Auto) 0.4 % 0.3 % Immature Granulocyte # (Auto) 0.02 K/uL 0.01 K/uL Prothrombin Time 10.7 SECONDS Prothromb Time International Ratio 1.0 Activated Partial Thromboplast Time 26.4 SECONDS Partial Thromboplastin Ratio 1.0 Sodium Level 136 mmol/L 136 mmol/L Potassium Level 3.9 mmol/L 4.0 mmol/L Chloride Level 104 mmol/L 105 mmol/L Carbon Dioxide Level 26 mmol/L 28 mmol/L Anion Gap 6.0 mmol/L 3.0 mmol/L Blood Urea Nitrogen 23 mg/dl 22 mg/dl Creatinine 1.04 mg/dl 1.02 mg/dl Est Creatinine Clear Calc Drug Dose 75.6 ml/min 76.1 ml/min Estimated GFR () 90.0 92.2 Estimated GFR (Non- 77.7 79.5 BUN/Creatinine Ratio 22.2 21.5 Random Glucose 92 mg/dl 88 mg/dl Estimated Average Glucose 74 mg/dl Hemoglobin A1c 4.2 % Calcium Level 9.0 mg/dl 8.8 mg/dl Magnesium Level 1.9 mg/dl Troponin I < 0.015 ng/ml Bedside Glucose 91 mg/dl Triglycerides Level 121 mg/dl Cholesterol Level 192 mg/dl HDL Cholesterol 55 mg/dl LDL Cholesterol, Calculated 113 mg/dl VLDL Cholesterol, Calculated 24 mg/dl Cholesterol/HDL Ratio 3.5 Assessment & Plan Impression: Patient is a 62 year old male who presented to the ED yesterday with transient memory loss that lasted several hours. Brain CT and MR imaging yesterday did not reveal any lesion, ischemia, or hemorrhage hinting at a possible cause. Patient presentation consistent with transient global amnesia. A/P: Transient global amnesia vs. transient epileptic amnesia vs CVA or bleed vs encephalitis -Patient had an acute onset of anterograde and recent retrograde amnesia that lasted a duration of 3-5 hours yesterday, senior care memory intact -Patient complained of headache associated with the event, patient has no history of migraines or epilepsy/seizures -Vitals stable, no fever. spontaneous return to baseline - rules out encephalitis -No abnormalities on CT or MR imaging of the brain; no identified insult to medial temporal lobe or hippocampus -Treatment is supportive, relapse is rare
[2017-10-30] MEDS ORDERED: ASPIRIN 81 MG ECTAB PO SCH (09:00)
--- NOTE | 2017-10-30 10:03 | Discharge Summary ---
Discharge Summary Date of Service Oct 30, 2017. Discharge Summary Admission Date: Oct 29, 2017 at 17:33 Discharge Date: Oct 30, 2017 Discharge Disposition: Home Principal Diagnosis: Transient global amnesia Problems/Secondary Diagnoses: Mitral valve prolapse Osteoarthritis Procedures: HEAD WITHOUT CONTRAST (CT) CLINICAL HISTORY: 62 years-old Male presenting with Stroke, memory loss. TECHNIQUE: Multidetector CT imaging of the head was performed without the use of intravenous contrast. IV contrast: None. A dose lowering technique was used consistent with the principles of ALARA (as low as reasonably achievable). COMPARISON: None. CT DOSE (mGy.cm): The estimated cumulative dose is 623.48 mGy.cm. FINDINGS: Asset Protection Lead topogram: Unremarkable. Ventricles and sulci normal in size. Brain parenchyma normal in appearance with preserved villatoro-white differentiation. No mass effect or midline shift. No hemorrhage or acute territorial infarct. No extra-axial fluid collection. Paranasal sinuses and mastoid air cells clear. Calvarium intact. IMPRESSION: 1. No acute intracranial abnormality. Electronically signed by: Sterling Morrell M.D. 10/29/2017 4:44 PM Dictated Date/Time: 10/29/2017 4:42 PM The status of this report is Signed. Draft = Not yet reviewed or approved by Radiologist. Signed = Reviewed and approved by Radiologist. CHEST ONE VIEW PORTABLE CLINICAL HISTORY: 62 years-old Male presenting with Stroke. TECHNIQUE: Portable upright AP view of the chest was obtained. COMPARISON: CT chest from 05/30/2017. FINDINGS: Cardiomediastinal silhouette normal. Lungs and pleural spaces clear. Degenerative changes of the thoracic spine. Pin fixation in the right humeral head. Effacement of the left acromiohumeral interval suggesting rotator cuff injury. Upper abdomen normal. IMPRESSION: 1. No acute cardiopulmonary disease. Electronically signed by: Sterling Morrell M.D. 10/29/2017 4:19 PM Dictated Date/Time: 10/29/2017 4:17 PM The status of this report is Signed. Draft = Not yet reviewed or approved by Radiologist. Signed = Reviewed and approved by Radiologist. BRAIN COMBO CLINICAL HISTORY: 62 years-old Male presenting with Stroke. TECHNIQUE: Multisequence, multiplanar MR imaging of the brain was performed before and after the administration of intravenous contrast. IV contrast: 7 mL of Gadavist. COMPARISON: CT head performed earlier the same day. FINDINGS: Ventricles and sulci normal in size. Brain parenchyma normal in appearance with preserved villatoro-white differentiation. No mass effect or midline shift. No restricted diffusion to suggest acute ischemia. No hemorrhage. No extra-axial fluid collection. T2 skull base flow voids preserved. No abnormal parenchymal enhancement. Bone marrow signal intensity within the calvarium within normal limits. IMPRESSION: 1. No acute intracranial pathology. No abnormal enhancement. Electronically signed by: Sterling Morrell M.D. 10/29/2017 8:38 PM Dictated Date/Time: 10/29/2017 8:33 PM The status of this report is Signed. Draft = Not yet reviewed or approved by Radiologist. Signed = Reviewed and approved by Radiologist. Consultations: Neurology- Dr. Ybarra Medication Reconciliation Continued Medications: Aspirin (Aspirin Ec) 81 Mg Tab 81 MG PO DAILY Fexofenadine Hcl (Karla Allergy) 180 Mg Tab 1 TAB PO DAILY PRN for PRN for 14 Days, #14 TAB 2 Refills Misc Natural Products (Joint Support) 1 Cap Cap 1 CAP PO Q3D PRN for Multivitamin (Multivitamin) Tab 1 TAB PO QAM, TAB Discharge Exam Review of Systems: Constitutional: No fever, No chills, No sweats, No weakness, No fatigue Eyes: No worsening of vision ENT: No hearing loss Respiratory: No cough, No shortness of breath, No hemoptysis Cardiovascular: No chest pain, No edema Abdomen: No pain, No nausea, No vomiting, No diarrhea, No constipation Musculoskeletal: No joint pain, No muscle pain, No swelling, No calf pain Genitourinary - Male: No hematuria, No dysuria Neurologic: No memory loss, No paralysis, No weakness, No numbness/tingling Psychiatric: No depression symptoms, No anxiety Endocrine: No fatigue Hematologic / Lymphatic: No abnormal bleeding/bruising Integumentary: No rash, No itch, No new/changing skin lesions Physical Exam: General Appearance: no apparent distress Eyes: normal inspection, PERRL ENT: hearing grossly normal Neck: supple Respiratory/Chest: lungs clear, no respiratory distress, no accessory muscle use Cardiovascular: regular rate, rhythm Abdomen / GI: normal bowel sounds, non tender, soft Extremities: no calf tenderness, no pedal edema Neurologic/Psychiatric: alert, normal mood/affect, oriented x 3 Skin: normal color, warm/dry, no rash Hospital Course Admission H&P: 62 yo male with history of mitral valve prolapse and osteoarthritis, presents today with transient memory loss that happened this afternoon when he was driving home from [place] after visiting with family. The patient was at a [place] [employer], he was drinking last night. His said that he was okay the entire way home but he could not remember what exit to get off [address] She felt that this was odd since they travel that road a lot. After being redirected by his , he was able to drive home. However, once home he could not remember the password to log onto his computer. He received a text from their mailman thanking him for the gift of a [employer] ticket and he wanted to tell him that he won $50. The patient could not recall giving him a [employer] card and a gift even though they just did it last week. He started to pace around the house and told his that he felt like he was "in a fog" and then he had a headache. His became concerned that maybe this was something serious so she brought him to the hospital. In the ED his vitals were stable, CT head normal and labs unremarkable. On exam his speech was clear, no focal neurologic deficits but he still had difficulty remembering events from this morning and last night. He cannot recall details of the [place] [employer] and cannot recall going out for breakfast with his family. 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 He can tell me his past surgical histories, he can tell me all the names of his 11 siblings, he can tell me his work experience and the medical history of his parents. He is oriented to person, place and time. Physical Exam Vital Signs Date Time Temp Pulse Resp B/P (MAP) Pulse Ox O2 Delivery O2 Flow Rate FiO2 10/29/17 16:59 160/98 10/29/17 16:08 82 21 10/29/17 16:04 97 Room Air 10/29/17 15:41 36.5 92 20 112/58 99 Room Air General Appearance: WD/WN, no apparent distress Head: normocephalic, atraumatic Eyes: normal inspection, EOMI, sclerae normal ENT: normal ENT inspection, hearing grossly normal, pharynx normal Neck: supple, no adenopathy, no JVD, trachea midline Respiratory/Chest: chest non-tender, lungs clear, normal breath sounds, no respiratory distress, no accessory muscle use Cardiovascular: regular rate, rhythm, no edema, no gallop, no JVD, no murmur, normal peripheral pulses Abdomen/GI: normal bowel sounds, non tender, soft, no organomegaly Back: normal inspection, no CVA tenderness, no muscle spasm, normal range of motion Extremities/Musculoskelatal: normal inspection, no calf tenderness, normal capillary refill, no pedal edema, normal range of motion, pelvis stable Neurologic/Psych: hand cementer II-XII nml as tested, no motor/sensory deficits, alert, normal mood/affect, normal reflexes, oriented x 3 Skin: normal color, warm/dry, no rash Lymphatic: no adenopathy Hospital Course: 62 y/o male with acute onset of memory loss, short term amnesia, still with some residual memory issues but 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 Short term memory loss, likely secondary to transient global amnesia, CVA r/o: - Admitted to [facility] cardiac monitoring- no acute events - Cardiac enzymes- negative - Head CT, brain MRI, and CXR unremarkable - Stroke protocol - Continue ASA - Checked lipid panel and HbA1c- reviewed - Consult neurology, appreciate recommendations- no new recommendations Code Status: LEVEL I, FULL DVT prophylaxis: Ambulation Dispo: Discharge to home Total Time Spent: Greater than 30 minutes This includes examination of the patient, discharge planning, medication reconciliation, and communication with other providers. Discharge Instructions Please refer to the electronic Patient Visit Report (Discharge Instructions) for additional information. Follow-Up Please follow-up with your PCP within 5-7 days Please follow-up/keep all of your subspecialty appointments Additional Copies To Lora Mazariegos M.D. Reviewed: Pt Seen/Exam by Me History Physician Technical Expert Supervision Note: I interviewed and examined the patient. Discussed with KATHARINE Moreno and agree with findings and plan as documented in the note. Any exceptions or clarifications are listed here: Pt feels completely back to baseline today. He actually now remembers everything that happened yesterday with the exception of the time he forgot his cell phone password. at bedside and reports he is back to himself. He had been traveling when this happened, was up late the night before, and did report drinking more EtOH beverages than he usually does the day before. No signs or symptoms of recent illness, no rashes or new joint pains, no numbness/tingling/ weakness. He did have a mild headache yesterday, but now none. MRI brain negative, Neuro consult reviewed. Vitals and tele reviewed-normal sinus and some PVCs overnight NAD, AAOx3, able to quickly state the months of the year backwards correctly PERRLA, EOMI, anicteric sclerae RRR no mgr CTAB no wcr Abd +BS soft NT ND Ext no edema Neuro - CN 2-12 intact, moving all extremities well 62 yo male otherwise healthy,. here with TGA. Unclear etiology but recommended getting better rest, drinking less EtOH. Neuro says risk of relapse is low. F/u with PCP within 1 week Documented By: Samantha Michaud
--- NOTE | 2017-10-30 10:04 | Discharge Instructions ---
Discharge Instructions Date of Service Oct 30, 2017. Admission Reason for Admission: Global Amnesia Discharge Discharge Diagnosis / Problem: Transient global amnesia Discharge Goals Goal(s): Decrease discomfort, Improve function, Learn about illness, Diagnostic testing, Therapeutic intervention, Prevent Disease Progression Activity Recommendations Activity Limitations: resume your previous activity . Instructions / Follow-Up Instructions / Follow-Up You were admitted to [facility] due to episodes of confusion. You were seen by Neurology, Dr. Ybarra who believes the source of your confusion was due to benign nature of transient global amnesia. There is no specific treatment for this phenomenon and some individuals experience relapse potentially related to stress or travel. Resume all regular home medications as prescribed. FOLLOW-UPS: Please follow-up with your PCP within 5-7 days Please follow-up/keep all of your subspecialty appointments Current Hospital Diet Patient's current hospital diet: Regular Diet Discharge Diet Recommended Diet: Regular Diet Pending Studies Studies pending at discharge: no Laboratory Results Hemoglobin A1c Test 10/29/17 15:53 Range/Units Estimated Average Glucose 74 mg/dl Hemoglobin A1c 4.2 L 4.5-5.6 % Lipid Panel Test 10/30/17 05:21 Range/Units Triglycerides Level 121 0-150 mg/dl Cholesterol Level 192 0-200 mg/dl HDL Cholesterol 55 mg/dl Cholesterol/HDL Ratio 3.5 LDL Cholesterol, Calculated 113 mg/dl Medical Emergencies . Who to Call and When: Medical Emergencies: If at any time you feel your situation is an emergency, please call 911 immediately. . Non-Emergent Contact Non-Emergency issues call your: Primary Care Provider . . "Provider Documentation" section prepared by Janie Moreno. . VTE Core Measure Inpt VTE Proph given/why not?: Treatment not indicated
[2017-10-30 10:37] VITALS: BP 133/81; PULSE 54; TEMP 36.9; O2SAT 100
== END 2017-10-30 11:14 | disposition home or self-care (01) ==
LOC: C.EDB 15:39 → C.MED 17:33 → ENRESERV 18:45
PROVIDERS: ADMIT Internal Medicine; ATTEND Internal Medicine
DX: G45.4 Transient global amnesia (principal); R41.82 Altered mental status, unspecified; Z80.1 Family history of malignant neoplasm of trachea, bronchus and lung; Z79.82 Long term (current) use of aspirin; I34.1 Nonrheumatic mitral (valve) prolapse; M19.90 Unspecified osteoarthritis, unspecified site